=== PATIENT | male | born 1960 | race Caucasian/White ===

== ENCOUNTER 2021-11-23 18:34 | Outpatient (REF) | payer BC, SELFPAY ==
[2021-11-23 16:26] LABS: ALT 28 U/L (16-63); AST 22 U/L (15-37); Albumin 4.1 g/dL (3.4-5.0); Alkaline Phosphatase 94 U/L (46-116); BUN 11 mg/dL (7-18); Bilirubin, Total 0.7 mg/dL (0.2-1.0); CREATININE 0.9 mg/dL (0.70-1.30); Calcium 8.8 mg/dL (8.5-10.1); Calculated LDL 159 mg/dL (<100); Chloride 102 mmol/L (98-107); Cholesterol 224 mg/dL (<200); Glucose 119 mg/dL (74-106); HDL Cholesterol 60 mg/dL (40-60); Potassium 4.4 mmol/L (3.5-5.1); Sodium 139 mmol/L (136-145); Total Protein 7.2 g/dL (6.4-8.2); Triglyceride 28 mg/dL (<150)
== END 2021-11-23 18:35 | disposition home or self-care (01) ==
LOC: NCHCN 18:34
PROVIDERS: Visit Provider Nurse Practitioner Family
DX: Z00.00 Encounter for general adult medical examination without abnormal findings (principal); Z13.220 Encounter for screening for lipoid disorders; Z13.228 Encounter for screening for other metabolic disorders
CPT/HCPCS: 80053; 80061

== ENCOUNTER 2022-12-05 18:00 | Outpatient (REF) | payer BC, SELFPAY ==
[2022-12-05 22:00] LABS: Calculated LDL 142 mg/dL (<100); Cholesterol 215 mg/dL (<200); HDL Cholesterol 67 mg/dL (40-60); Triglyceride 31 mg/dL (<150)
[2022-12-05 22:02] LABS: Hemoglobin A1C 6.2 % (<5.7)
[2022-12-06 10:19] LABS: TSH (W/Ref FT4) 1.19 uIU/mL (0.36-3.74)
[2022-12-06 18:27] LABS: PSA, Screening 1.1 ng/mL (<=4.5)
== END 2022-12-05 18:01 | disposition home or self-care (01) ==
LOC: NCHCN 18:00
PROVIDERS: Visit Provider Nurse Practitioner Family
DX: Z00.00 Encounter for general adult medical examination without abnormal findings (principal); R73.03 Prediabetes; Z13.220 Encounter for screening for lipoid disorders; Z12.5 Encounter for screening for malignant neoplasm of prostate; Z13.29 Encounter for screening for other suspected endocrine disorder
CPT/HCPCS: 80061; 84153; 83036; 84443

== ENCOUNTER 2024-11-25 11:50 | Outpatient (REF) | payer MEDICARE, BC, SELFPAY ==
[2024-11-25 17:00] LABS: Hemoglobin A1C 6.2 % (<5.7)
[2024-11-25 17:02] LABS: ALT 21 U/L (16-63); AST 19 U/L (15-37); Albumin 3.8 g/dL (3.4-5.0); Alkaline Phosphatase 82 U/L (46-116); Anion Gap 5.6 mmol/L (3-11); BUN 16 mg/dL (7-18); Bilirubin, Total 0.7 mg/dL (0.2-1.0); CO2 31.4 mmol/L (21.0-32.0); CREATININE 0.9 mg/dL (0.70-1.30); Calcium 8.8 mg/dL (8.5-10.1); Calculated LDL 139 mg/dL (<100); Chloride 103 mmol/L (98-107); Cholesterol 203 mg/dL (<200); Estimated GFR 94.78 (mL/min/1.73m2); Glucose 121 mg/dL (74-106); HDL Cholesterol 58 mg/dL (>or=40); Potassium 3.8 mmol/L (3.5-5.1); Sodium 140 mmol/L (136-145); TSH 1.81 uIU/mL (0.36-3.74); Total Protein 7.2 g/dL (6.4-8.2); Triglyceride 31 mg/dL (<150)
[2024-11-26 18:17] LABS: PSA, Screening 1.7 ng/mL (<=4.5)
== END 2024-11-25 11:51 | disposition home or self-care (01) ==
LOC: NCHCN 11:50
PROVIDERS: PCP Nurse Practitioner Family; Visit Provider Nurse Practitioner Family
DX: Z00.00 Encounter for general adult medical examination without abnormal findings (principal); Z12.5 Encounter for screening for malignant neoplasm of prostate; R53.83 Other fatigue
CPT/HCPCS: 80053; 80061; 84153; 83036; 84443

== ENCOUNTER 2025-02-03 15:01 | Outpatient (REF) | payer MEDICARE, BC, SELFPAY ==
[2025-02-03 16:05] LABS: HCT 42.0 % (40.0-50.0); HGB 14.3 g/dL (13.5-17.5); MCH 30.0 pg (27.0-33.0); MCHC 34.0 % (32.0-36.0); MCV 88 fL (80-95); MPV 10.0 fL (8.0-11.0); Platelet Count 212 10^3/uL (130-400); RBC 4.77 10^6/uL (4.36-5.78); RDW 12.9 % (11.8-14.1); RDW-SD 41.6 fL; WBC 4.01 10^3/uL (4.4-10.8)
[2025-02-03 17:06] LABS: Anion Gap 3.3 mmol/L (3-11); BUN 16 mg/dL (7-18); CO2 31.7 mmol/L (21.0-32.0); Calcium 8.7 mg/dL (8.5-10.1); Chloride 104 mmol/L (98-107); Estimated GFR 94.78 (mL/min/1.73m2); Ferritin 63 ng/mL (26-388); Folate 5.9 ng/mL (8.6-20.0); Glucose 121 mg/dL (74-106); Potassium 4.4 mmol/L (3.5-5.1); Sodium 139 mmol/L (136-145); TSH (W/Ref FT4) 1.22 uIU/mL (0.36-3.74); Vitamin B12 227 pg/mL (193-986)
[2025-02-03 17:13] LABS: Hemoglobin A1C 6.2 % (<5.7)
[2025-02-03 17:33] LABS: Creatine Kinase 75 U/L (39-308)
[2025-02-04 11:29] LABS: Lyme Ab w Rflx to Lyme Confirm Negative (Negative)
[2025-02-05 22:04] LABS: B. miyamotoi PCR Negative (Negative); Babesia divergens/MO-1 Negative (Negative); Ehrlichia muris eauclairensis Negative (Negative)
== END 2025-02-03 15:02 | disposition home or self-care (01) ==
LOC: NCHCN 15:01
PROVIDERS: PCP Nurse Practitioner Family; Visit Provider Nurse Practitioner Family
DX: R53.81 Other malaise (principal); R53.83 Other fatigue; R73.03 Prediabetes
CPT/HCPCS: 80048; 82550; 85027; 86341; 87798; 82607; 82728; 82746; 83036; 84443; 84681; 85045; 86618

== ENCOUNTER 2025-02-12 08:37 | Outpatient (REF) | payer MEDICARE, BC, SELFPAY | END 2025-02-12 08:38 | disposition home or self-care (01) | LOC: NCHCN 08:37 | PROVIDERS: PCP Nurse Practitioner Family; Visit Provider Nurse Practitioner Family | DX: R73.03 Prediabetes (principal) | CPT/HCPCS: 83525 ==